=== PATIENT | male | born 2005 | race Caucasian/White ===

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

== ENCOUNTER 2024-02-21 03:21 | Inpatient (IN) | payer OTHER ==
[2024-02-21] MEDS ORDERED: VANCOMYCIN IV PER PHARMACY 1 EACH MISC MISCELLANE PRN (03:58)
[2024-02-21] MEDS ORDERED: ONDANSETRON 4 MG/2 ML VIAL IVP PRN (04:02)
[2024-02-21] MEDS ORDERED: NALOXONE 0.4 MG/ML 1 ML VIAL IV PRN (04:02)
--- NOTE | 2024-02-21 04:03 | ED ---
Back Pain HPI - General Chief Complaint: Skin/Abscess/Foreign Body Stated Complaint: CYST ON BACK Time Seen by Provider: 02/21/24 03:49 Source: patient, RN notes reviewed, old records reviewed Limitations: no limitations - History of Present Illness Initial Comments: This 1-year-old male to the ER for evaluation today. Patient presents to the ER for evaluation of back pain with cyst. Patient is on antibiotics for his lower extremity back pain. Patient's pain is severe on the back. History of back cyst that is recently diagnosed. No trauma no fevers just severe pain with worsening symptoms since starting antibiotics presents to the ER today MD Complaint: back pain -: days(s) Similar Symptoms Previously: Yes Place: home Radiation: buttocks Severity: severe Severity scale (1-10): 8 Quality: sharp Consistency: constant Improves With: none Worsens With: none Associated Symptoms: other (back pain) Treatments Prior to Arrival: other (0) - Related Data Home Medications Medication Instructions Recorded Confirmed Acetaminophen-Codeine 300-30mg 1 tab PO Q6H PRN 02/21/24 02/21/24 [Tylenol w/codeine #3] traZODone HCL [Desyrel] 50 mg PO HS PRN 02/21/24 02/21/24 Previous Rx's Medication Instructions Recorded Amoxic-Pot Clav 875-125Mg 1 tab PO Q12HR 7 Days #14 tab 02/23/24 [Augmentin 875-125] Ibuprofen [Motrin] 600 mg PO Q8HR PRN #30 tab 02/23/24 Allergies Allergy/AdvReac Type Severity Reaction Status Date / Time No Known Allergies Allergy Verified 02/21/24 12:11 Review of Systems ROS Statement: Those systems with pertinent positive or pertinent negative responses have been documented in the HPI. ROS Other: All systems not noted in ROS Statement are negative. Past Medical History Past Medical History: No Reported History History of Any Multi-Drug Resistant Organisms: None Reported Past Surgical History: No Surgical Hx Reported Past Psychological History: No Psychological Hx Reported Smoking Status: Never smoker Past Alcohol Use History: None Reported Past Drug Use History: None Reported General Exam Limitations: no limitations General appearance: alert, in no apparent distress, anxious Head exam: Present: atraumatic, normocephalic, normal inspection Eye exam: Present: normal appearance, PERRL, EOMI. Absent: scleral icterus, conjunctival injection, periorbital swelling ENT exam: Present: normal exam, mucous membranes moist Neck exam: Present: normal inspection. Absent: tenderness, meningismus, lymphadenopathy Respiratory exam: Present: normal lung sounds bilaterally. Absent: respiratory distress, wheezes, rales, rhonchi, stridor Cardiovascular Exam: Present: normal rhythm, tachycardia, normal heart sounds. Absent: systolic murmur, diastolic murmur, rubs, gallop, clicks GI/Abdominal exam: Present: soft, normal bowel sounds. Absent: distended, tenderness, guarding, rebound, rigid Extremities exam: Present: normal inspection, full ROM, normal capillary refill. Absent: tenderness, pedal edema, joint swelling, calf tenderness Back exam: Present: normal inspection Neurological exam: Present: alert, oriented X3, CN II-XII intact Psychiatric exam: Present: normal affect, normal mood Skin exam: Present: warm, dry, intact, normal color. Absent: rash Course Vital Signs 02/21/24 02/21/24 02/21/24 03:25 07:11 13:55 Temperature 99.6 F 98.6 F 97.9 F Pulse Rate 124 H 103 H Pulse Rate [ 99 Pulse Oximetery ] Respiratory 20 20 16 Rate Blood Pressure 127/81 138/81 Blood Pressure 113/75 [Right Arm] O2 Sat by Pulse 100 99 95 Oximetry - Reevaluation(s) Reevaluation #1: 02/21/24 04:00 Medical record is reviewed Reevaluation #2: 02/21/24 04:00 No symptoms unchanged Reevaluation #3: 02/21/24 04:00 Patient informed of results and questions answered Reevaluation #4: Was pt. sent in by a medical professional or institution (, PA, GAS CHARGER, urgent care, hospital, or halfway...) When possible be specific @ -no Did you speak to anyone other than the patient for history (EMS, parent, family, police, friend...)? What history was obtained from this source @ -no Did you review nursing and triage notes (agree or disagree)? Why? @ -agree Are old charts reviewed (outside hosp., previous admission, EMS record, old EKG, old radiological studies, urgent care reports/EKG's, halfway records)? Report findings @ -yes Differential Diagnosis (chest pain, altered mental status, abdominal pain women, abdominal pain men, vaginal bleeding, weakness, fever, dyspnea, syncope, headache, dizziness, GI bleed, back pain, seizure, CVA, palpatations, mental health, musculoskeletal)? @ -prior EKG interpreted by me (3pts min.). @ -no X-rays interpreted by me (1pt min.). @ -no CT interpreted by me (1pt min.). @ -Yes positive pilonidal cyst U/S interpreted by me (1pt. min.). @ -no What testing was considered but not performed or refused? (CT, X-rays, U/S, labs)? Why? @ -none What meds were considered but not given or refused? Why? @ -none Did you discuss the management of the patient with other professionals (professionals i.e. , PA, GAS CHARGER, lab, RT, psych nurse, director social, decorating machine tender, teacher, president and chief commercial officer, watch case polisher)? Give summary @ -no Was smoking cessation discussed for >3mins.? @ -no Was critical care preformed (if so, how long)? @ -no Were there social determinants of health that impacted care today? How? (Homelessness, low income, unemployed, alcoholism, drug addiction, transportation, low edu. Level, literacy, decrease access to med. care, detention, rehab)? @ -none Was there de-escalation of care discussed even if they declined (Discuss DNR or withdrawal of care, Hospice)? DNR status @ -no What co-morbidities impacted this encounter? (DM, HTN, Smoking, COPD, CAD, Cancer, CVA, ARF, Chemo, Hep., AIDS, mental health diagnosis, sleep apnea, morbid obesity)? @ -none Was patient admitted / discharged? Hospital course, mention meds given and route, prescriptions, significant lab abnormalities, going to OR and other pertinent info. @ - 18 Female to the ER for evaluation of severe back pain with pilonidal cyst. Patient admitted for surgical evaluation of pilonidal cyst Admitted Undiagnosed new problem with uncertain prognosis? @ -no Drug Therapy requiring intensive monitoring for toxicity (Heparin, Nitro, Insulin, Cardizem)? @ -no Were any procedures done? @ -no Diagnosis/symptom? @ -Pilonidal cyst Acute, or Chronic, or Acute on Chronic? @ -Acute Uncomplicated (without systemic symptoms) or Complicated (systemic symptoms)? @ -Complicated Side effects of treatment? @ -no Exacerbation, Progression, or Severe Exacerbation? @ -exacerbation Poses a threat to life or bodily function? How? (Chest pain, [place], [place], pneumonia, PE, COPD, DKA, ARF, appy, cholecystitis, CVA, Diverticulitis, Homicidal, Suicidal, threat to staff... and all critical care pts) @ -yes with severe infection - Consultations Consultation #1: Spoke with Dr. Lang who is okay for observation of this patient Medical Decision Making - Medical Decision Making 18 Female to the ER for evaluation of severe back pain with pilonidal cyst. Patient admitted for surgical evaluation of pilonidal cyst - Lab Data Result diagrams: 02/22/24 04:15 02/23/24 07:27 - Radiology Data Radiology results: report reviewed (CT pelvis is positive for pilonidal cyst), image reviewed Disposition Clinical Impression: Pilonidal cyst, Failure of outpatient treatment Disposition: [facility] Condition: Stable Is patient prescribed a controlled substance at d/c from ED?: No Time of Disposition: 04:00
[2024-02-21 04:48] LABS: Basophils # (A) 0.1 k/uL (0-0.2); Basophils % (A) 0 %; Eosinophils # (A) 0.2 k/uL (0-0.7); Eosinophils % (A) 2 %; HGB 13.4 gm/dL (13.0-17.5); Lymphocytes # (A) 1.6 k/uL (1.0-4.8); Lymphocytes % (A) 14 %; MCH 27.8 pg (25.0-35.0); MCHC 32.8 g/dL (31.0-37.0); MCV 84.9 fL (80.0-100.0); Mean Platelet Volume 8.2; Monocytes # (A) 0.8 k/uL (0-1.0); Monocytes % (A) 7 %; Neutrophils % (A) 76 %; Platelet Count 276 k/uL (150-450); RBC 4.83 m/uL (4.30-5.90); RDW 12.9 % (11.5-15.5)
[2024-02-21] MEDS: AMPICILLIN-SULBACTAM 3 GM in SODIUM CHLORIDE 0.9% 100 ML IVPB STA (05:30)
[2024-02-21] MEDS: SODIUM CHLORIDE 0.9% 1,000 ML IV SCH (05:30)
[2024-02-21] MEDS: MORPHINE SULFATE 4 MG/ML SYRINGE IV STA (05:40)
[2024-02-21] MEDS: ONDANSETRON 4 MG/2 ML VIAL IVP STA (05:41)
--- NOTE | 2024-02-21 05:52 | CT ---
EXAM: CT Pelvis With Intravenous Contrast CLINICAL HISTORY: ITS.REASON CT Reason: abscess TECHNIQUE: Axial computed tomography images of the pelvis with intravenous contrast. CTDI is 41.9 mGy and DLP is 2112.7 mGy-cm. This CT exam was performed using one or more of the following dose reduction techniques: automated exposure control, adjustment of the mA and/or kV according to patient size, and/or use of iterative reconstruction technique. COMPARISON: No relevant prior studies available. FINDINGS: Bowel: Unremarkable. No obstruction. No mucosal thickening. Appendix: Normal appendix. Intraperitoneal space: Unremarkable. No free air. No significant fluid collection. Bladder: Unremarkable. No mass. Reproductive: Unremarkable as visualized. Bones/joints: No acute fracture. No dislocation. Soft tissues: 3 x 3 x 5 cm subcutaneous low-density lesion/fluid collection at the superior aspect of the gluteal cleft posterior to the distal sacrum. Surrounding fat stranding. Vasculature: Unremarkable. No lower abdominal aortic aneurysm. Lymph nodes: Unremarkable. No enlarged lymph nodes. IMPRESSION: 3 x 3 x 5 cm subcutaneous low-density lesion/fluid collection at the superior aspect of the gluteal cleft posterior to the distal sacrum. Surrounding fat stranding. Correlates with abscess although somewhat limited evaluation on noncontrast imaging. Other lesion not excluded.
[2024-02-21] MEDS: VANCOMYCIN 2,250 MG in SODIUM CHLORIDE 0.9% 500 ML 500 ML IVPB ONE (06:39)
[2024-02-21] MEDS: PANTOPRAZOLE 40 MG/10 ML VIAL IV SCH (08:05)
[2024-02-21] MEDS: MORPHINE SULFATE 4 MG/ML SYRINGE IV PRN (10:03)
--- NOTE | 2024-02-21 10:21 | P.GSHP ---
History of Present Illness H&P Date: 02/21/24 This is a 19-year-old male who presented to the ER for evaluation last night. Patient presents to the ER for evaluation of back pain with cyst. Patient is on antibiotics for his lower extremity back pain. Patient's pain is severe on the back. History of back cyst that is recently diagnosed. No trauma no fevers just severe pain with worsening symptoms since starting antibiotics presents to the ER today. CT pelvis shows a pilonidal cyst with an abscess. Review of Systems ROS Statement: Those systems with pertinent positive or pertinent negative responses have been documented in the HPI. ROS Other: All systems not noted in ROS Statement are negative. Past Medical History Past Medical History: No Reported History History of Any Multi-Drug Resistant Organisms: None Reported Past Surgical History: No Surgical Hx Reported Past Psychological History: No Psychological Hx Reported Smoking Status: Never smoker Past Alcohol Use History: None Reported Past Drug Use History: None Reported General Exam Limitations: no limitations General appearance: alert, in no apparent distress, anxious Head exam: Present: atraumatic, normocephalic, normal inspection Eye exam: Present: normal appearance, PERRL, EOMI. Absent: scleral icterus, conjunctival injection, periorbital swelling ENT exam: Present: normal exam, mucous membranes moist Neck exam: Present: normal inspection. Absent: tenderness, meningismus, lymphadenopathy Respiratory exam: Present: normal lung sounds bilaterally. Absent: respiratory distress, wheezes, rales, rhonchi, stridor Cardiovascular Exam: Present: normal rhythm, tachycardia, normal heart sounds. Absent: systolic murmur, diastolic murmur, rubs, gallop, clicks GI/Abdominal exam: Present: soft, normal bowel sounds. Absent: distended, tenderness, guarding, rebound, rigid Extremities exam: Present: normal inspection, full ROM, normal capillary refill. Absent: tenderness, pedal edema, joint swelling, calf tenderness Back exam: Present: normal inspection Neurological exam: Present: alert, oriented X3, CN II-XII intact Psychiatric exam: Present: normal affect, normal mood Skin exam: Present: warm, dry, intact, normal color. Absent: rash 18 year old male with pilonidal cyst with abscess - OR tomorrow for Incision and Drainage - Regular Diet, NPO/midnight - Abx - Pain Control Past Medical History Past Medical History: No Reported History History of Any Multi-Drug Resistant Organisms: None Reported Past Surgical History: No Surgical Hx Reported Past Psychological History: No Psychological Hx Reported Smoking Status: Never smoker Past Alcohol Use History: None Reported Past Drug Use History: None Reported Medications and Allergies Allergies Allergy/AdvReac Type Severity Reaction Status Date / Time No Known Allergies Allergy Verified 02/21/24 03:27 Surgical - Exam Vital Signs Temp Pulse Resp BP Pulse Ox 99.6 F 124 H 20 127/81 100 02/21/24 03:25 02/21/24 03:25 02/21/24 03:25 02/21/24 03:25 02/21/24 03:25 Results - Labs 02/21/24 04:39 Abnormal Lab Results - Last 24 Hours (Table) 02/21/24 Range/Units 04:39 WBC 12.0 H (4.0-11.0) k/uL Neutrophils # 9.0 H (1.3-7.7) k/uL
[2024-02-21] MEDS: AMPICILLIN-SULBACTAM 3 GM in SODIUM CHLORIDE 0.9% 100 ML IVPB SCH (13:56)
[2024-02-21 14:10] LABS: ALT 24 U/L (4-49); AST 20 U/L (17-59); African American GFR (CKD) >90 (>60 ml/min/1.73 sqM); Albumin 3.7 g/dL (3.5-5.0); Albumin/Globulin Ratio 1.5; Alkaline Phosphatase 75 U/L (38-126); Anion Gap 8 mmol/L; Blood Urea Nitrogen 9 mg/dL (9-20); Calcium 8.6 mg/dL (8.4-10.2); Carbon Dioxide 22 mmol/L (22-30); Chloride 106 mmol/L (98-107); Globulin 2.4 g/dL; Glucose 101 mg/dL (74-99); Magnesium 1.8 mg/dL (1.6-2.3); Non-African American GFR(CKD) >90 (>60 ml/min/1.73 sqM); Phosphorus 3.5 mg/dL (2.5-4.5); Potassium 3.9 mmol/L (3.5-5.1); Sodium 136 mmol/L (137-145); Total Bilirubin 0.7 mg/dL (0.2-1.3); Total Protein 6.1 g/dL (6.3-8.2)
[2024-02-21] MEDS: VANCOMYCIN 2,000 MG in SODIUM CHLORIDE 0.9% 500 ML 500 ML IVPB SCH (16:13)
[2024-02-22] MEDS ORDERED: MIDAZOLAM 2 MG/2 ML VIAL ONE (07:58)
[2024-02-22] MEDS ORDERED: fentaNYL (PF) 50 MCG/ML 2 ML AMP ONE (07:58)
[2024-02-22] MEDS ORDERED: PROPOFOL 10 MG/ML 20 ML VIAL IV ONE (07:58)
[2024-02-22] MEDS: LACTATED RINGERS 1,000 ML IV ONE (07:58)
[2024-02-22] MEDS ORDERED: KETAMINE HCL IN 0.9 % NACL 50 MG/5 ML SYRINGE ONE (07:58)
[2024-02-22] MEDS: LIDOCAINE 1%-EPI 1:100,000 20 ML VIAL SQ ONE (08:12)
--- NOTE | 2024-02-22 08:23 | P.OP ---
Date of Procedure: 02/22/24 Preoperative Diagnosis: Pilonidal Abscess Postoperative Diagnosis: Pilonidal Abscess Procedure(s) Performed: Incision and Drainage Abscess Anesthesia: local Surgeon: Javad Calderon Estimated Blood Loss (ml): 50 Pathology: other (cultures taken) Condition: stable Disposition: PACU Description of Procedure: The patient was brought to the operating suite and left in the left lateral decubitus position in her bed. Anesthesia was given and patient was intubated. Patient was prepped and draped in sterile fashion. Timeout was performed. An #11 blade was used to make an incision over the pilonidal abscess. A hemostat was used to break up loculations. Cultures were taken. 1/2 inch iodoform packing was placed in the wound. Sterile dressing was applied. The patient tolerated procedure well and was sent to the PACU in stable condition.
[2024-02-22] MEDS: KETOROLAC 15 MG/ML 1 ML VIAL IVP STA (08:44)
[2024-02-22] MEDS: ACETAMINOPHEN IV (For NPO) 1,000 MG in EMPTY BAG 1 BAG IVPB STA (09:06)
[2024-02-22 09:34] LABS: Basophils # (A) 0.04 X 10*3/uL (0.00-0.10); Basophils % (A) 0.4 %; Eosinophils # (A) 0.15 X 10*3/uL (0.04-0.35); Eosinophils % (A) 1.5 %; HCT 40.1 % (39.6-50.0); HGB 12.7 g/dL (13.0-17.0); Lymphocytes # (A) 1.21 X 10*3/uL (0.90-5.00); Lymphocytes % (A) 12.4 %; MCH 28.1 pg (27.0-32.0); MCHC 31.7 g/dL (32.0-37.0); MCV 88.7 FL (80.0-97.0); Monocytes % (A) 12.3 %; NRBC Per 100 WBC 0 X 10*3/uL (0.00-0.01); Neutrophils # (A) 7.12 X 10*3/uL (1.80-7.70); Neutrophils % (A) 73.1 %; Platelet Count 245 X 10*3/uL (140-440); RBC 4.52 X 10*6/uL (4.40-5.60); RDW 12.8 % (11.5-14.5); WBC 9.75 X 10*3/uL (4.50-10.00)
--- NOTE | 2024-02-22 10:44 | P.PN ---
Progress Note - Text Progress Note Date: 02/22/24 Patient was seen on the floor after his incision and drainage performed this morning. Says his pain is improved. Afebrile. Ambulating in the room. Patient is an 3D SPECIALIST. Apparently he had an appointment with Dr. Patel on March 11. He thought it was for actual surgery although states he has not seen her yet. Dressing in place at pilonidal abscess Continue antibiotics. Monitor for cultures. Probable discharge tomorrow.
[2024-02-22 19:48] LABS: ALT 24 U/L (10-49); AST 19 U/L (14-35); Alkaline Phosphatase 86 U/L (41-126); BUN/Creat Ratio 9.88 Ratio (12.00-20.00); Blood Urea Nitrogen 7.9 mg/dL (9.0-27.0); Carbon Dioxide 19.8 mmol/L (21.6-31.8); Chloride 104 mmol/L (96-109); Globulin 2.5 g/dL (1.6-3.3); Glucose 104 mg/dL (70-110); Potassium 4.6 mmol/L (3.5-5.5); Sodium 139 mmol/L (135-145); Total Bilirubin 0.3 mg/dL (0.3-1.2); Total Protein 6.5 g/dL (6.2-8.2)
[2024-02-23 07:59] LABS: African American GFR (CKD) >90 (>60 ml/min/1.73 sqM); Non-African American GFR(CKD) >90 (>60 ml/min/1.73 sqM)
[2024-02-23] MEDS ORDERED: KETOROLAC 15 MG/ML 1 ML VIAL IVP PRN (08:19)
[2024-02-23] MEDS ORDERED: ACETAMINOPHEN TAB 325 MG TAB PO PRN (08:19)
[2024-02-23] MEDS: VANCOMYCIN TROUGH DUE 1 EACH MISC MISCELLANE ONE (08:49)
[2024-02-23] MEDS: HYDROcodone/APAP 5-325MG 1 EACH TAB PO PRN (14:18)
--- NOTE | 2024-02-23 14:46 | CDI ---
Documentation Clarification Form Date: 02/23/2024 02:34:34 PM From: Lorelei Hickman RN CCDS Phone: [phone] Admit Date: 02/21/2024 04:03:00 AM Patient Name: Bobby Alvares Visit Number: [id number] Discharge Date: ATTENTION: The Clinical Documentation Specialists (CDI) and [facility] Coding Staff appreciate your assistance in clarifying documentation. Please respond to the clarification below the line at the bottom and electronically sign. The CDI & [facility] Coding staff will review the response and follow-up if needed. Please note: Queries are made part of the Legal Health Record. If you have any questions, please contact the author of this message via ITS. Dr. Javad Calderon There is documentation of Incision and Drainage, 02/21, Procedure note. Additional clarification regarding the procedure is requested. History/Risk Factors: 19-year-old male presents to the ED for evaluation of back pain with cyst. Medical History: none reported, 02/20, Clinical Indicators: CT Pelvis with intravenous contrast, 02/20: 3 x 3 x 5 cm subcutaneous low density lesion/fluid collection at the superior aspect of the gluteal left posterior to the distal sacrum. Surrounding fat stranding. Procedure note, 02/21: Left lateral decubitus position #11 blade was used to make an incision over the pilonidal abscess. A hemostat was used to break up loculations. inch iodoform packing was placed in the wound. Treatment: Incision and Drainage Can you please clarify the depth of the Incision ? [ ] Skin [ x] Subcutaneous tissue and facia [ ] Other, please specify [ ] Unable to determine (Template Last Revised: October 2020) Subcutaneous Tissue MTDD
--- NOTE | 2024-02-23 15:16 | P.DS ---
Providers Date of admission: 02/21/24 04:03 Expected date of discharge: 02/23/24 Attending physician: Ovidio Lang Primary care physician: Lorenzo Rooney Hospital Course: Discharge diagnosis 1. Pilonidal abscess status post incision and drainage Hospital course This is a 18-year-old who presented to the emergency room with severe pain from his pilonidal abscess. He is status post incision and drainage of pilonidal abscess. Pain has improved. He is afebrile. He is tolerating diet. He has been up and ambulating. His pain is controlled. He is stable for discharge. Physician [employer] note has been reviewed by physician. Signing provider agrees with the documented findings, assessment, and plan of care. Patient Condition at Discharge: Stable Plan - Discharge Summary Discharge Rx Participant: Yes New Discharge Prescriptions: New Ibuprofen [Motrin] 600 mg PO Q8HR PRN #30 tab PRN Reason: Pain Amoxic-Pot Clav 875-125Mg [Augmentin 875-125] 1 tab PO Q12HR 7 Days #14 tab Continue traZODone HCL [Desyrel] 50 mg PO HS PRN PRN Reason: sleep Acetaminophen-Codeine 300-30mg [Tylenol w/codeine #3] 1 tab PO Q6H PRN PRN Reason: Pain Discontinued Sulfamethox-Tmp 800-160Mg [Bactrim DS 800-160 mg] 1 tab PO Q12H Discharge Medication List Acetaminophen-Codeine 300-30mg [Tylenol w/codeine #3] 1 tab PO Q6H PRN 02/21/24 [History] traZODone HCL [Desyrel] 50 mg PO HS PRN 02/21/24 [History] Amoxic-Pot Clav 875-125Mg [Augmentin 875-125] 1 tab PO Q12HR 7 Days #14 tab 02/23/24 [Rx] Ibuprofen [Motrin] 600 mg PO Q8HR PRN #30 tab 02/23/24 [Rx] Follow up Appointment(s)/Referral(s): Lorenzo Rooney MD [Primary Care Provider] - 1-2 days [facility], [NON-STAFF] - 1 Week ([facility] will call you to arrange a visit) Ovidio Lang MD [Medical Doctor] - 1 Week Activity/Diet/Wound Care/Special Instructions: No driving while taking Tylenol with codeine No lifting over 10 pounds You may shower. No soaking or tub baths for 2 weeks Very light activity until you are reevaluated at your follow up appointment with your surgeon Wound Care: Remove packing from pilonidal cyst while patient showers. Then repack with Aquacel silver and cover with ABD. Change packing every 48 hours. Discharge Disposition: HOME WITH HOME HEALTH SERVICES
[2024-02-23 15:23] VITALS: BP 119/74; PULSE 115; RESP 18; TEMP 97.9
== END 2024-02-23 17:31 | disposition home health service (06) | DRG 364 ==
LOC: EC 03:21 → 5NMEDONC 04:03 → 4SSUR 15:08
PROVIDERS: ADMIT Surgery; ATTEND Surgery
PROC: 0J970ZZ Drainage of Back Subcutaneous Tissue and Fascia, Open Approach (ICD-10-PCS; principal; 2024-02-22 08:00)
DX: L05.01 Pilonidal cyst with abscess (principal); Z28.311 Partially vaccinated for COVID-19; Z28.21 Immunization not carried out because of patient refusal
CPT/HCPCS: 72193; 80053; 80202; 82565; 83735; 84100; 85025; 87040; 87070; 87075; 87205; 96365; 96366; 96367; 96375; 96376; 99285